=== PATIENT | female | born 1960 | race Caucasian/White ===

== ENCOUNTER 2017-08-28 10:12 | Outpatient (CLI) | payer OTHER ==
[2016-06-01 00:10] VITALS: BP 132/79
--- NOTE | 2017-08-28 12:50 | Diagnostic Imaging Report ---
SHRUTHI BENDER ([place]) - OP [facility] [address] [id number] Report Submission Date: Aug 28, 2017 11:00:58 AM HEALTH CARE ASSISTANT Patient Study Name: CAROLEE WALDRON Date: Aug 28, 2017 10:18:22 AM HEALTH CARE ASSISTANT Modality Type: CR Gender: F Description: ABDOMEN : 64 Institution: [facility] Physician: SHRUTHI BENDER ([place]) - OP Examination: Abdomen History: RIGHT FLANK PAIN SINCE 08/24/17 (Hx) / RIGHT FLANK PAIN, LBP (DICOM Hx) / RIGHT FLANK PAIN, LBP (Pt comments) Findings: 4 views obtained of the abdomen. No abnormal dilation of the large or small bowel. Air and stool throughout the large bowel. No suspicious calcification projecting over the renal fossa or the lower pelvic region. Presumed tubal ligation clips. Osseous structures are appropriate for age. Impression: No obstruction. No suspicious calcifications by plain film sensitivity. Electronically signed on Aug 28, 2017 11:00:58 AM HEALTH CARE ASSISTANT by: Armand GILLILAND
== END 2017-08-28 10:14 ==
LOC: RAD 10:12
PROVIDERS: ATTEND Nurse Practitioner Family
DX: M54.2 Cervicalgia (principal); R10.9 Unspecified abdominal pain
CPT/HCPCS: 74018